=== PATIENT | female | born 1995 | race Caucasian/White ===

== ENCOUNTER 2017-02-17 16:16 | Emergency (ER) | payer OTHER ==
[~2017-02-17] VITALS: Ht 160 cm; Wt 78.0 kg
[2017-02-17 16:19] VITALS: Ht 160 cm; Wt 78.0 kg
--- NOTE | 2017-02-17 17:45 | RADRPT ---
PROCEDURE: XR Chest. CLINICAL INDICATION: Chest pain TECHNIQUE: A single PA view of the chest was obtained. COMPARISON: None FINDINGS: The cardiomediastinal silhouette is within normal limits. The lungs and pleural spaces are clear. The soft tissues and osseous structures are unremarkable. IMPRESSION: No acute cardiopulmonary disease. RPTAT: [facility]PN[facility] Physician John Date Time Electronically viewed and signed by Gilbert Acosta Physician on 02/17/2017 17:45 /
--- NOTE | 2017-02-17 17:59 | ERD ---
ER Documentation Chief Complaint Date/Time DATE: 02/17/17 TIME: 17:57 Chief Complaint CWP FOR FEW WEEKS HPI This is a 21-year-old female with a previous medical history of anxiety and diabetes who presents to the emergency room for evaluation of chest pain. The patient states her chest pain is intermittent however it is worse when she has an anxiety attack. The patient does state that she was feeling anxious today and noted some chest pain. She came to the ER for further evaluation. She denies any active chest pain at this time. She denies any radiation of the chest pain and states that when she is anxious she is also short of breath. The patient denies any relieving factors for her pain ROS All systems reviewed and are negative except as per history of present illness. PMhx/Soc Medical and Surgical Hx: pt denies Surgical Hx Anesthesia Reaction: No Hx Neurological Disorder: No Hx Respiratory Disorders: No Hx Cardiac Disorders: No Hx Psychiatric Problems: No Hx Miscellaneous Medical Probl: Yes (ANXIETY, DM) Hx Alcohol Use: No Hx Substance Use: No Hx Tobacco Use: No Smoking Status: Never smoker Physical Exam Vitals Vital Signs Date Time Temp Pulse Resp B/P Pulse Ox O2 Delivery O2 Flow Rate FiO2 02/17/17 16:19 99.3 90 20 123/66 99 Physical Exam Const: No acute distress Head: Atraumatic Eyes: Normal Conjunctiva ENT: Normal External Ears, Nose and Mouth. Neck: Full range of motion..~ No meningismus. Resp: Clear to auscultation bilaterally Cardio: Regular rate and rhythm, no murmurs Abd: Soft, non tender, non distended. Normal bowel sounds Skin: No petechiae or rashes Back: No midline or flank tenderness Ext: No cyanosis, or edema Neur: Awake and alert Psych: Normal Mood and Affect Procedures/MDM EKG: Rate/Rhythm: [Normal Sinus Rhythm] QRS, ST, T-waves: [No changes consistent w/ acute ischemia] Impression: [No evidence of ischemia or arrhythmia] Chest X-ray 1V Interpreted by me: Soft Tissue: No acute abnormalities Bones: No acute abnormalities Mediastinum/Cardiac Silhouette/Lungs: [No acute abnormalities] This 21-year-old female presents to the emergency room for evaluation of chest pain. The patient does have a history of diabetes and anxiety. When I evaluated her she was nontoxic appearing, not febrile, not tachycardic, not hypoxic and in no respiratory distress. EKG is nonischemic and a chest x-ray is clear. I do feel this patient is suffering from anxiety which is causing her chest pain. The patient will be discharged home at this time with anxiety instructions and instructions to follow-up with her primary care physician or return to the ER for symptoms worsen. Departure Diagnosis: Primary Impression: Anxiety Additional Impression: Chest pain Condition: Stable MIRELLA VALDERRAMA DO Feb 17, 2017 17:59
== END 2017-02-17 18:10 | disposition home or self-care (01) ==
LOC: FTE 16:16
DX: F41.9 Anxiety disorder, unspecified (principal); E11.9 Type 2 diabetes mellitus without complications
CPT/HCPCS: 71010; 93005; Z7502

== ENCOUNTER 2019-05-25 17:18 | Emergency (ER) | payer OTHER ==
[~2019-05-25] VITALS: Ht 160 cm; Wt 65.6 kg
[~2019-05-25 17:18] MED LIST: IBUP-1542 PO
[2019-05-25 17:27] VITALS: BP 129/70; PULSE 81; RESP 16; Ht 160 cm; Wt 65.6 kg
[2019-05-25] MEDS ORDERED: IBUPROFEN 600 MG TAB PO ONE (18:00)
== END 2019-05-25 19:30 | disposition home or self-care (01) ==
LOC: FTE 17:18
DX: S33.5XXA Sprain of ligaments of lumbar spine, initial encounter (principal); S30.0XXA Contusion of lower back and pelvis, initial encounter; E11.9 Type 2 diabetes mellitus without complications; W22.8XXA Striking against or struck by other objects, initial encounter; Y92.9 Unspecified place or not applicable
CPT/HCPCS: 72100; 72170; 81025; Z7502; Z7610